=== PATIENT | male | born 1990 | race Caucasian/White ===

== ENCOUNTER 2018-10-16 17:43 | Emergency (ER) | payer SELFPAY ==
[~2018-10-16] VITALS: Ht 188 cm; Wt 72.6 kg
[2018-10-16 18:31] VITALS: BP 126/73
[2018-10-16] MEDS ORDERED: TETRACAINE HCL 0.5% OPTH(EYE) SOLN 4ML RIGHTEYE ONE (19:15)
[2018-10-16] MEDS ORDERED: FLUORESCEIN SOD 1 MG TEST STRIP EACHEYE ONE (20:00)
== END 2018-10-16 20:32 | disposition home or self-care (01) ==
LOC: ER 17:47
DX: S05.01XA Injury of conjunctiva and corneal abrasion without foreign body, right eye, initial encounter (principal); W22.8XXA Striking against or struck by other objects, initial encounter; Y93.89 Activity, other specified; Y99.8 Other external cause status; Y92.89 Other specified places as the place of occurrence of the external cause